=== PATIENT | male | born 1970 | race Caucasian/White ===

== ENCOUNTER 2024-03-05 10:41 | Emergency (ER) | payer OTHER ==
[~2024-03-05] VITALS: Ht 180.3 cm; Wt 93.0 kg
[2024-03-05 10:45] VITALS: O2SAT 98
[2024-03-05 11:34] LABS: BASOPHILS % 0.4 % (0.0-2.0); HEMOGLOBIN. 15.4 g/dL (14.0-18.0); LYMPHOCYTES % 38.1 % (20.0-50.0); MEAN CORPUSCULAR HEMOGLOBIN 32.3 pg (28.0-32.0); MEAN CORPUSCULAR HGB CONC 34.3 g/dL (31.0-37.0); MEAN CORPUSCULAR VOLUME 94.2 fL (80.0-94.0); MEAN PLATELET VOLUME 7.9 fl (7.4-10.4); MONOCYTES % 10.9 % (2.0-8.0); NEUTROPHILS % 48.6 % (40.0-76.0); PLATELET 278 x1000/uL (130-400); RED BLOOD CELL COUNT 4.77 mill/uL (4.7-6.1); RED CELL DISTRIBUTION WIDTH 13.7 % (11.6-14.6); WHITE BLOOD COUNT 6.6 x1000/uL (4.5-11.0)
[2024-03-05 11:44] LABS: D-DIMER 0.19 mg/L FEU (<0.50); INR 0.9; PROTHROMBIN TIME 10.5 sec (9.6-11.0)
[2024-03-05 11:45] LABS: CHLORIDE 105 mEq/L (98-107); POTASSIUM 4.2 mEq/L (3.5-5.1); SODIUM 140 mEq/L (136-145)
[2024-03-05 11:46] LABS: CALCIUM 9.2 mg/dL (8.7-10.4); CARBON DIOXIDE 27 mEq/L (21-32)
[2024-03-05 11:51] LABS: CREATININE 0.9 mg/dL (0.6-1.3); GLUCOSE 121 mg/dL (70-105); UREA NITROGEN BLOOD 9 mg/dL (9-23)
[2024-03-05 11:53] LABS: PHOSPHORUS 3.1 mg/dL (2.5-4.9)
[2024-03-05 12:07] LABS: ETHANOL BLOOD < 10 mg/dL (<10); TROPONIN I HIGH SENSITIVITY < 4 ng/L (3.0-53)
[2024-03-05 12:11] LABS: LACTIC ACID 3.5 mmol/L (0.4-2.0)
[2024-03-05] MEDS: SODIUM CHLORIDE 0.9% 1,000 ML IV ONE (12:14)
[2024-03-05] MEDS: SODIUM CHLORIDE 0.9% (SEPSIS BOLUS) IV ONE (12:15)
[2024-03-05] MEDS: PIPERACILLIN/TAZO 3.375G/50ML 50 ML IV ONE (13:53)
[2024-03-05 14:23] LABS: CLARITY URINE CLEAR (CLEAR); COLOR URINE YELLOW (YELLOW); GLUCOSE URINE NEGATIVE (NEGATIVE); KETONES URINE NEGATIVE (NEGATIVE); LEUKOCYTE ESTERASE URINE NEGATIVE (NEGATIVE); NITRITE URINE NEGATIVE (NEGATIVE); OCCULT BLOOD URINE NEGATIVE (NEGATIVE); PH URINE 7.5 (4.5-8.0); PROTEIN URINE NEGATIVE (NEGATIVE); SPECIFIC GRAVITY URINE 1.009 (1.005-1.030); UROBILINOGEN URINE 0.2 E.U./dL (0.2-1.0)
[2024-03-05] MEDS: VANCOMYCIN 1G PREMIX 200 ML IV ONE (14:30)
[2024-03-05 14:31] LABS: *AMPHETAMINES SCREEN URINE NEGATIVE (NEGATIVE); *BARBITURATES SCREEN URINE NEGATIVE (NEGATIVE); *BENZODIAZEPINES SCREEN URINE NEGATIVE (NEGATIVE)
[2024-03-05 14:32] LABS: *COCAINE SCREEN URINE NEGATIVE (NEGATIVE); CANNABINOID URINE SCREEN NEGATIVE (NEGATIVE); ECSTASY MDMA SCREEN URINE NEGATIVE (NEGATIVE); METHADONE URINE SCREEN NEGATIVE (NEGATIVE); OPIATES URINE SCREEN NEGATIVE (NEGATIVE); PHENCYCLIDINE URINE SCREEN NEGATIVE (NEGATIVE)
[2024-03-05 14:58] LABS: TROPONIN I HIGH SENSITIVITY 6 ng/L (3.0-53)
[2024-03-05] MEDS ORDERED: ACETAMINOPHEN 325MG TABLET PO PRN (15:45)
[2024-03-05] MEDS ORDERED: MAGNESIUM/ALUMINUM HYDROXIDE/SIMETHICONE 30ML UDC PO PRN (15:45)
[2024-03-05] MEDS ORDERED: IPRATROPIUM/ALBUTEROL 0.5-3(2.5)MG/3ML NEB NEB PRN (15:45)
[2024-03-05] MEDS ORDERED: ONDANSETRON HCL 4MG/2ML INJ IV PRN (15:45)
[2024-03-05] MEDS: PANTOPRAZOLE SODIUM 40 MG/VIAL IV SCH (16:13)
[2024-03-05] MEDS: SODIUM CHLORIDE 0.9% 1,000 ML IV SCH (16:14)
[2024-03-05] MEDS: ENOXAPARIN 40MG/0.4ML SYR SUBCUT SCH (16:14)
[2024-03-05 16:20] VITALS: BP 103/81; PULSE 95; RESP 15; TEMP 37.05852; O2SAT 99
[2024-03-05] MEDS ORDERED: VANCOMYCIN 750MG/150ML (BAXTER) IV SCH (20:00)
[2024-03-05] MEDS ORDERED: PIPERACILLIN/TAZO 3.375G/50ML 50 ML IV SCH (22:00)
== END 2024-03-05 16:56 | disposition short-term general hospital (02) ==
LOC: ER 10:41 → EDBEDREQ 11:14 → EDBEDREQTM 15:06 → ER 16:56
DX: A41.9 Sepsis, unspecified organism (principal); R65.20 Severe sepsis without septic shock; D72.821 Monocytosis (symptomatic); D75.89 Other specified diseases of blood and blood-forming organs; G90.89 Other disorders of autonomic nervous system; E87.20 Acidosis, unspecified; I10 Essential (primary) hypertension; Z86.73 Personal history of transient ischemic attack (TIA), and cerebral infarction without residual deficits
CPT/HCPCS: 80305; 80048; 81003; 80320; 83880; 83605; 83735; 84100; 85025; 85379; 85610; 87040; 87086; 84484; 36415; 84145; 71045; 96361; 96365; 96372; 96375; 99291; J1650; J2470; J2543; J3370; J7030; Z7610; G0480